=== PATIENT | male | born 2005 | race Caucasian/White ===

== ENCOUNTER 2024-10-04 17:20 | Emergency (ER) | payer OTHER ==
[~2024-10-04] VITALS: Ht 182.9 cm; Wt 84.5 kg
[2024-10-04] MEDS ORDERED: LIDOcaine 1% W/epiNEPHrine 1:100,000 20ml vial SQ ONE (17:30)
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
[2024-10-04] MEDS: TETanus/Pertussis (Acell)/Diphther VAC/PF (Tdap-Adult) 0.5ml syringe IMVAC ONE (17:53)
--- NOTE | 2024-10-04 18:14 | RADIOLOGY REPORT ---
CLINICAL INDICATION: FOOT PAIN TECHNIQUE: 3 radiographic views of the right foot were obtained. Comparison: None FINDINGS/IMPRESSION: There is no evidence of acute fracture or dislocation. The visualized joint space is well maintained. The alignment is anatomical. There is no radiopaque foreign body.
[2024-10-04] MEDS ORDERED: DOXY-462 PO (19:02)
[2024-10-04] MEDS: DOXYCYCLINE 100MG CAPSULE PO STA (19:11)
[2024-10-04 20:01] VITALS: BP 128/54; PULSE 86; RESP 18; TEMP 98.6; O2SAT 99
== END 2024-10-04 20:02 | disposition home or self-care (01) ==
LOC: ER 17:22
DX: S91.311A Laceration without foreign body, right foot, initial encounter (principal); Z88.1 Allergy status to other antibiotic agents; X58.XXXA Exposure to other specified factors, initial encounter; Y93.39 Activity, other involving climbing, rappelling and jumping off; Y92.89 Other specified places as the place of occurrence of the external cause; Y99.8 Other external cause status
CPT/HCPCS: 12002; 73630; 90471; 90715; 99283; A6222; J7030; L3260; A6258; A6449